=== PATIENT | male | born 1970 | race American Indian/Alaskan Native ===

== ENCOUNTER 2022-04-24 17:21 | Emergency (ER) | payer SELFPAY ==
--- NOTE | 2022-04-24 17:53 | XRay Report ---
LEFT RIBS 3 VIEWS INDICATION / CLINICAL INFORMATION: fall, rib pain. COMPARISON: None available. FINDINGS: RIBS: No acute, displaced fracture or other acute abnormality. LUNGS: No acute findings. No pneumothorax. Signer Name: Jack Bashir MD Signed: 04/24/2022 5:48 PM Workstation Name: [id number]
[2022-04-24] MEDS ORDERED: ONDANSETRON 4 MG ODT TAB PO ONE (21:17)
[2022-04-24] MEDS ORDERED: HYDROcodone/ACETAMINOPHEN 7.5-325MG TAB PO ONE (21:17)
--- NOTE | 2022-04-24 22:02 | Emergency Department Report ---
ED Fall HPI - General Chief Complaint: Fall Stated Complaint: FELL OFF LADDER HURT RIBS Source: patient Mode of arrival: Ambulatory - History of Present Illness Initial Comments: Patient is a 52-year-old male with no past medical history presents to the ED with complaint of acute onset persistent left lateral rib and chest wall pain as well as left-sided mid posterior thoracic pain after he slipped off a 5 foot ladder and fell down landing on his left side 3 days ago. Patient states that he has been taking [id number] medications with no relief. Patient states that his pain is especially worse with movement or deep inhalation or any lifting. Patient states that he is unable to sleep because of worsening pain. Patient denies dizziness, syncope, shortness of breath, seizures, head or neck injuries, low back pain, cough, sore throat, nausea and vomiting, loss of consciousness or hemoptysis. MD Complaint: fall, other (left lateral rib and chest wall pain; left mid posterior thoracic pain) -: days(s) (3) Fall From: other (fell off 5 foot ladder) When Fall Occurred: # days [employer] (3) Fall Witnessed: yes, by family Place Fall Occurred: home Loss of Consciousness: none Prolonged Down Time?: no Symptoms Prior to Fall: none Location: chest (left lateral chest wall and rib pain), back (mid-posterior thoracic pain) Severity: severe Severity scale (0 -10): 9 Quality: sharp, aching Context: tripped/slipped Associated Symptoms: denies, chest paint (left lateral rib pain). denies: headache, neck pain, numbness, weakness, shortness of breath, abdominal pain, hematuria, unable to walk, lightheaded, vertigo, confusion, other - Related Data Previous Rx's Medication Instructions Recorded Last Taken Type HYDROcodone/APAP 5-325 [[place] 1 each PO Q6HR PRN #12 tablet 04/24/22 Unknown Rx 5/325] Ibuprofen [Motrin] 800 mg PO Q8HR PRN #30 tablet 04/24/22 Unknown Rx methOCARBAMOL [Robaxin TAB] 750 mg PO BID PRN #24 tab 04/24/22 Unknown Rx Allergies Allergy/AdvReac Type Severity Reaction Status Date / Time No Known Allergies Allergy Verified 04/24/22 17:32 ED Review of Systems ROS: Stated complaint: FELL OFF LADDER HURT RIBS Other details as noted in HPI Constitutional: denies: chills, fever Eyes: denies: eye pain, eye discharge, vision change ENT: denies: ear pain, throat pain Respiratory: denies: cough, shortness of breath, wheezing Cardiovascular: chest pain (left lateral rib pain). denies: palpitations Endocrine: no symptoms reported Gastrointestinal: denies: abdominal pain, nausea, vomiting, diarrhea Genitourinary: denies: urgency, dysuria Musculoskeletal: back pain (Left-sided mid posterior thoracic pain). denies: joint swelling, arthralgia Skin: denies: rash, lesions Neurological: denies: headache, weakness, paresthesias Psychiatric: denies: anxiety, depression Hematological/Lymphatic: denies: easy bleeding, easy bruising ED Past Medical Hx - Medications Home Medications: Home Medications Medication Instructions Recorded Confirmed Last Taken Type HYDROcodone/APAP 5-325 [[place] 1 each PO Q6HR PRN #12 tablet 04/24/22 Unknown Rx 5/325] Ibuprofen [Motrin] 800 mg PO Q8HR PRN #30 tablet 04/24/22 Unknown Rx methOCARBAMOL [Robaxin TAB] 750 mg PO BID PRN #24 tab 04/24/22 Unknown Rx ED Physical Exam - General Limitations: No Limitations General appearance: alert, in no apparent distress - Head Head exam: Present: atraumatic, normocephalic, normal inspection - Eye Eye exam: Present: normal appearance, PERRL, EOMI Pupils: Present: normal accommodation - ENT ENT exam: Present: normal exam, normal orophraynx, mucous membranes moist, TM's normal bilaterally, normal external ear exam - Neck Neck exam: Present: normal inspection, full ROM. Absent: tenderness - Respiratory Respiratory exam: Present: normal lung sounds bilaterally, chest wall tenderness (Palpable reproducible left lateral rib and chest wall tenderness). Absent: respiratory distress, wheezes, rales, stridor, accessory muscle use, decreased breath sounds - Cardiovascular Cardiovascular Exam: Present: normal rhythm, bradycardia, normal heart sounds. Absent: tachycardia, irregular rhythm, systolic murmur, diastolic murmur, rubs, gallop - GI/Abdominal GI/Abdominal exam: Present: soft, normal bowel sounds. Absent: tenderness, guarding, rebound, hyperactive bowel sounds, hypoactive bowel sounds, organomegaly, mass - Extremities Exam Extremities exam: Present: normal inspection, full ROM, normal capillary refill. Absent: tenderness, pedal edema, joint swelling, calf tenderness - Back Exam Back exam: Present: normal inspection, full ROM, tenderness (Palpable left-sided mid posterior thoracic paraspinal musculoskeletal tenderness), muscle spasm, paraspinal tenderness. Absent: CVA tenderness (R), CVA tenderness (L), vertebral tenderness - Neurological Exam Neurological exam: Present: alert, oriented X3, CN II-XII intact, normal gait, reflexes normal - Psychiatric Psychiatric exam: Present: normal affect, normal mood - Skin Skin exam: Present: warm, dry, intact, normal color. Absent: rash ED Course Vital Signs 04/24/22 17:33 Temperature 96 F L Pulse Rate 54 L Respiratory 16 Rate Blood Pressure 131/55 [Left] O2 Sat by Pulse 97 Oximetry ED Medical Decision Making - Radiology Data Radiology results: report reviewed, image reviewed [facility] [address] [place] [address] XRay Report Signed Patient: KATY MEDEIROS MR#: [id number] : 1970 Acct:[id number] Age/Sex: 52 / M ADM Date: 04/24/22 Loc: ED Attending Dr: Ordering Physician: GEOVANNA YUAN Date of Service: 04/24/22 Procedure(s): XR ribs UNI w PA chest 3+V LT Accession Number(s): [id number] cc: GEOVANNA YUAN Fluoro Time In Minutes: LEFT RIBS 3 VIEWS INDICATION / CLINICAL INFORMATION: fall, rib pain. COMPARISON: None available. FINDINGS: RIBS: No acute, displaced fracture or other acute abnormality. LUNGS: No acute findings. No pneumothorax. Signer Name: Jack Bashir MD Signed: 04/24/2022 5:48 PM Workstation Name: [id number] Transcribed By: IFTIKHAR Dictated By: Jack Bashir MD Electronically Authenticated By: Jack Bashir MD Signed Date/Time: 04/24/221747 DD/ 47 TD/TT: - Medical Decision Making This is a 52-year-old male with no past medical history presents to the ED with complaint of acute onset persistent left lateral rib and chest wall pain as well as left-sided mid posterior thoracic pain after he slipped off a 5 foot ladder and fell down landing on his left side 3 days ago. Patient states that he has been taking [id number] medications with no relief. Patient states that his pain is especially worse with movement or deep inhalation or any lifting. Patient states that he is unable to sleep because of worsening pain. In the ED, patient is alert and oriented x3 and is not in any distress. Patient however appears to be in significant pain. Patient was treated for pain in the ED. Left rib and chest x-ray showed no acute rib fractures or subluxations, no pneumothorax, no pleural effusion or any cardiopulmonary abnormalities or pneumonitis. On reevaluation, patient's pain is well controlled medication. Patient will discharge home on pain medication and advised to follow-up with his primary care physician in 5 to 7 days for reevaluation. Patient was advised to return to the ED immediately if symptoms get worse. - Differential Diagnosis Rib fracture; rib contusion; chest wall muscle strain; muscle spasm; Critical care attestation.: If time is entered above; I have spent that time in minutes in the direct care of this critically ill patient, excluding procedure time. ED Disposition Clinical Impression: Strain of muscle and tendon of back wall of thorax, initial encounter, Muscle strain of anterior chest wall Contusion of rib on left side Qualifiers: Encounter type: initial encounter Qualified Code(s): S20.212A - Contusion of left front wall of thorax, initial encounter Contusion of left chest wall Qualifiers: Encounter type: initial encounter Qualified Code(s): S20.212A - Contusion of left front wall of thorax, initial encounter Disposition: 01 HOME / SELF CARE / HOMELESS Is pt being admited?: No Does the pt Need Aspirin: No Condition: Stable Instructions: Muscle Strain, [id number], Contusion, [id number], Blunt Chest Trauma, Rib Contusion Additional Instructions: The left rib and chest x-ray showed no acute rib fractures or subluxations, pneumothorax, pleural effusion or pneumonitis. Therefore take medication with food, drink plenty of fluids, follow-up with your primary care physician in 7 to 10 days for reevaluation. Return to the ED immediately if symptoms get worse. Prescriptions: Ibuprofen [Motrin] 800 mg PO Q8HR PRN #30 tablet PRN Reason: Pain , Severe (7-10) HYDROcodone/APAP 5-325 [[place] 5/325] 1 each PO Q6HR PRN #12 tablet PRN Reason: Pain methOCARBAMOL [Robaxin TAB] 750 mg PO BID PRN #24 tab PRN Reason: Muscle Spasm Referrals: JIGNESH MOLINA MD [Primary Care Provider] - 7-10 days Time of Disposition: 22:14 Print Language: ETHIOPIAN
[2022-04-24 23:08] VITALS: BP 137/62
== END 2022-04-24 23:08 | disposition home or self-care (01) ==
LOC: ED 17:21
DX: S29.012A Strain of muscle and tendon of back wall of thorax, initial encounter (principal); S20.212A Contusion of left front wall of thorax, initial encounter; W19.XXXA Unspecified fall, initial encounter; Y93.89 Activity, other specified; Y92.89 Other specified places as the place of occurrence of the external cause; Y99.8 Other external cause status
CPT/HCPCS: 99283; J3490; Q0162